=== PATIENT | female | born 1970 | race African-American/Black ===

== ENCOUNTER 2019-05-24 22:57 | Inpatient (IN) | payer OTHER ==
[~2019-05-24] VITALS: Ht 162.6 cm; Wt 123.5 kg
--- NOTE | ~2019-05-24 | EKG ---
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
[~2019-05-24 22:57] MED LIST: Bactroban Oint22 GM T; SEPTDS PO
[2019-05-24 23:55] VITALS: BP 123/59
[2019-05-24 23:55] LABS: BASO % 0.3 % (0.0-1.0); EOS % 0.4 % (1.0-4.0); HEMATOCRIT 45.2 % (37.0-47.0); HEMOGLOBIN 13.7 g/dl (12.0-16.0); LYMPH # 1.3 10*3/uL (1.3-4.4); LYMPH % 16.8 % (27.0-41.0); MEAN CELL VOLUME 99.1 fl (81.0-99.0); MEAN CORPUSCULAR HGB CONC 30.3 g/dl (33.0-37.0); MEAN PLATELET VOLUME 8.6 fl (9.6-12.3); MONO # 0.6 10*3/uL (0.1-1.0); MONO % 7.4 % (3.0-9.0); NEUT # 5.7 10*3/uL (2.3-7.9); NEUT % 74.6 % (47.0-73.0); PLATELET COUNT AUTOMATED 220 10*3/uL (130-400); RED BLOOD COUNT 4.56 10*6/uL (4.10-5.10); WHITE BLOOD COUNT 7.6 10*3/uL (4.8-10.8)
[2019-05-25] MEDS ORDERED: TRULICITY0.75 MG/0. SC (00:01)
[2019-05-25] MEDS ORDERED: XARELTO20 M1 PO (00:03)
[2019-05-25] MEDS ORDERED: LIPITOR80 MG PO (00:03)
[2019-05-25] MEDS ORDERED: STEGLATRO15 MG PO (00:04)
[2019-05-25] MEDS ORDERED: NORVASC10 MG PO (00:04)
[2019-05-25 00:05] LABS: ALBUMIN 3.1 gm/dl (3.1-4.5); CREATININE 1.29 mg/dL (0.55-1.02); POTASSIUM 4.2 mmol/L (3.5-5.1); TOTAL PROTEIN 7.1 gm/dL (6.4-8.2)
[2019-05-25] MEDS ORDERED: DIOVAN160 M2 PO (00:05)
[2019-05-25 00:07] LABS: TROPONIN I 0.047 ng/ml (<0.045)
[2019-05-25 00:08] VITALS: BP 123/58
[2019-05-25 01:52] LABS: ABG BASE EXCESS -0.4 mmol/L (-2.0-2.0); ABG HCO3 28.7 mmol/l (22-26); ABG O2 SATURATION 95.1 % (95-97); ARTERIAL BLOOD GAS PCO2 69.5 mmHg (35-45); ARTERIAL BLOOD GAS PH 7.238 (7.35-7.45); ARTERIAL BLOOD GAS PO2 87.6 mmHg (80-90)
[2019-05-25 02:08] VITALS: BP 146/77
[2019-05-25 02:48] LABS: BILIRUBIN NEGATIVE (NEGATIVE); BLOOD NEGATIVE (NEGATIVE); CLARITY SL CLOUDY (CLEAR); COLOR YELLOW (YELLOW); GLUCOSE 3+ (NEGATIVE); KETONE NEGATIVE (NEGATIVE); LEUKO ESTERASE NEGATIVE (NEGATIVE); NITRITE NEGATIVE (NEGATIVE); SPECIFIC GRAVITY 1.025 (1.005-1.030); UROBILINOGEN 0.2 E.U./dl (0.2-1.0)
[2019-05-25 02:55] LABS: BACTERIA 2+; EPITHELIAL CELLS 16-20; RBC 0-2 rbc/hpf (0-2)
[2019-05-25 04:00] VITALS: BP 147/82
[2019-05-25 04:43] LABS: HEMOGLOBIN 14.1 g/dl (12.0-16.0); MEAN CELL VOLUME 100.4 fl (81.0-99.0); MEAN CORPUSCULAR HGB 30.1 pg (27.0-31.0); MEAN PLATELET VOLUME 8.8 fl (9.6-12.3); NUCLEATED RED BLOOD CELL 0.2 % (0.0-0.0); PLATELET COUNT AUTOMATED 229 10*3/uL (130-400); RED BLOOD COUNT 4.68 10*6/uL (4.10-5.10)
[2019-05-25 05:03] LABS: TOTAL CELLS COUNTED 100 #CELLS
[2019-05-25 05:04] LABS: PLATELET SUFFICIENCY NORMAL (NORMAL)
[2019-05-25 05:14] LABS: ALBUMIN 3.3 gm/dl (3.1-4.5); CREATININE 1.37 mg/dL (0.55-1.02); POTASSIUM 4.4 mmol/L (3.5-5.1); TOTAL PROTEIN 7.9 gm/dL (6.4-8.2)
[2019-05-25 05:22] LABS: THYROID STIM HORMONE (HS) 0.468 uIU/ml (0.358-4.75)
[2019-05-25 08:00] VITALS: BP 114/67
[2019-05-26] MEDS ORDERED: LEVAQUIN500 M2 PO (10:09)
[2019-05-26] MEDS ORDERED: PREDNISONE10 MG PO (10:09)
== END 2019-05-25 09:57 | disposition left against medical advice (07) | DRG 682 ==
LOC: ED 22:57 → ICCU 05-25 01:40 → EDHOLD 05-25 01:40 → ICCU 05-25 01:58
PROVIDERS: Emergency Medicine Emergency Medical Services; Family Medicine; Surgery; ADMIT Internal Medicine
DX: N17.0 Acute kidney failure with tubular necrosis (principal); J96.22 Acute and chronic respiratory failure with hypercapnia; J96.21 Acute and chronic respiratory failure with hypoxia; J44.1 Chronic obstructive pulmonary disease with (acute) exacerbation; E87.2 Acidosis; R74.8 Abnormal levels of other serum enzymes; F19.10 Other psychoactive substance abuse, uncomplicated; F41.9 Anxiety disorder, unspecified; F32.9 Major depressive disorder, single episode, unspecified; E11.65 Type 2 diabetes mellitus with hyperglycemia; Z96.649 Presence of unspecified artificial hip joint; E78.5 Hyperlipidemia, unspecified; E11.42 Type 2 diabetes mellitus with diabetic polyneuropathy; I50.9 Heart failure, unspecified; I11.0 Hypertensive heart disease with heart failure; F17.210 Nicotine dependence, cigarettes, uncomplicated; Z79.899 Other long term (current) drug therapy; Z98.891 History of uterine scar from previous surgery; Z86.718 Personal history of other venous thrombosis and embolism; Z86.711 Personal history of pulmonary embolism; Z82.49 Family history of ischemic heart disease and other diseases of the circulatory system; Z84.89 Family history of other specified conditions; Z71.6 Tobacco abuse counseling

== ENCOUNTER 2019-05-25 10:24 | Inpatient (IN) | payer OTHER ==
[2019-05-25] VITALS (7 sets, daily range): BP systolic 107–144; BP diastolic 51–78
[~2019-05-25] VITALS: Ht 162.5 cm; Wt 126.2 kg
--- NOTE | ~2019-05-25 | EKG ---
[place], [place] ELECTROCARDIOGRAM REPORT NAME: BEBO HARMON UNIT #: [id number] ROOM: 504 DOCTOR: ERMA DRAFT REPORT BIRTHDATE: [birth year] [facility] Test Date: 2019-05-25 Test Time: 10:25:49 Pat Name: BEBO HARMON Department: Room: 504 Gender: F Support Worker: Anaid Gaston : 1970 Requested By: ROHIT PEDRO Order Number: [id number] Reading MD: Marti Hernandez MD Measurements Intervals [place] Rate: 77 P: 64 [place]: 184 QRS: -21 QRSD: 113 T: 149 QT: 426 QTc: 483 Interpretive Statements Sinus rhythm Probable left atrial enlargement Borderline intraventricular conduction delay Abnormal R-wave progression, late transition Abnormal T, consider ischemia, lateral leads No previous ECG available for comparison Electronically Signed On 05-26-2019 12:28:20 PDT by Marti Hernandez MD CM:EKGRPT:ELECTROCARDIOGRAM REPORT 1025 1228 ROHIT STODDARD DRAFT REPORT ROHIT PEDRO DO
--- NOTE | ~2019-05-25 | EKG ---
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
[~2019-05-25 10:24] MED LIST changes: +DIOVAN160 M2 PO; +LIPITOR80 MG PO; +NORVASC10 MG PO; +STEGLATRO15 MG PO; +TRULICITY0.75 MG/0. SC; +XARELTO20 M1 PO
[2019-05-25 10:49] LABS: HEMATOCRIT 43.2 % (37.0-47.0); HEMOGLOBIN 13.1 g/dl (12.0-16.0); MEAN CELL VOLUME 100.9 fl (81.0-99.0); MEAN CORPUSCULAR HGB 30.6 pg (27.0-31.0); MEAN CORPUSCULAR HGB CONC 30.3 g/dl (33.0-37.0); MEAN PLATELET VOLUME 8.8 fl (9.6-12.3); PLATELET COUNT AUTOMATED 209 10*3/uL (130-400); RED BLOOD COUNT 4.28 10*6/uL (4.10-5.10); RED CELL DISTRI WIDTH 15.9 % (0-14.5); WHITE BLOOD COUNT 6.6 10*3/uL (4.8-10.8)
[2019-05-25 11:06] LABS: ALBUMIN 3.1 gm/dl (3.1-4.5); CREATININE 1.35 mg/dL (0.55-1.02); POTASSIUM 4.4 mmol/L (3.5-5.1); TOTAL PROTEIN 7.4 gm/dL (6.4-8.2)
[2019-05-25 11:07] LABS: TROPONIN I 0.03 ng/ml (<0.045)
--- NOTE | 2019-05-25 11:09 | NUR ---
CRITICAL LAB LACTIC ACID 2.5. DR PEDRO NOTIFIED OF THIS.
[2019-05-25 11:10] LABS: TOTAL CELLS COUNTED 100 #CELLS
[2019-05-25 11:12] LABS: PLATELET SUFFICIENCY NORMAL (NORMAL); POLYCHROMASIA SLIGHT
--- NOTE | 2019-05-25 11:15 | NUR ---
PT POSITIONED FOR COMFORT WITH FLUIDS AND BOX LUNCH PROVIDED,PT SITTING TO SIDE OF THE BED WATCING T.V. W/O ADDITIONAL COMPLAINTS VOICED.VSS.
--- NOTE | 2019-05-25 12:50 | NUR ---
ABSCESS?(PER PT @ [facility])TO RAC WITH FULL THICKNESS ULCERATION NOTED @ THIS TIME PRIOR TO ADMISSION.
--- NOTE | 2019-05-25 13:15 | NUR ---
DELAY IN TAKING PT TO FLOOR D/T PHYSICIAN IN TO SPEAK WITH PT AT THIS TIME.
--- NOTE | 2019-05-25 13:30 | NUR ---
LAB & EKG IN TO OBTAIN 2ND EKG & LABS.
--- NOTE | 2019-05-25 13:45 | NUR ---
A 48, admitted to , under the services of ALLAN Bearden DO with a diagnosis of ACUTE RESPIRATORY FAILURE WITH HYPOXIA, ACUTE HEART FAILURE. Chief complaint is SOB AFTER LEAVING ICC[facility] AMA AND GOING OUTSIDE TO SMOKE. Patient arrived via stretcher from ER. Monitor applied. Initial assessment completed. Vital signs taken and recorded. See assessment for past medical history, medications and allergies. Patient and/or family oriented to unit. [facility] visitation policy reviewed. CAROLINA OLIVAREZ
--- NOTE | 2019-05-25 14:17 | NUR ---
Dr. Albrecth notified of critical lactic acid of 2.3 and troponin of 0.22. Notified that med rec was updated as well.
--- NOTE | 2019-05-25 15:46 | NUR ---
Pt given sputum cup and instructed on use. Applied dressing to RAN wound per orders.
--- NOTE | 2019-05-25 16:25 | NUR ---
Notified by lab that pt refused blood draw for ordered labs.
--- NOTE | 2019-05-25 17:10 | NUR ---
Notified by EKG that pt refused her last EKG.
--- NOTE | 2019-05-25 19:00 | NUR ---
Checked in on patient and asked her if she wanted a breathing tx. She stated that she didnt and all she wanted to do was sleep. Informed her to let the nurse know if she decided she needed one throughout the night.
--- NOTE | 2019-05-25 19:00 | NUR ---
BEDSIDE REPORT RECEIVED. PT ALERT, VOICES NO COMPLAINTS/NEEDS AT THIS TIME. RESTING IN BED WITH EYES CLOSED. CALL LIGHT IN REACH.
--- NOTE | 2019-05-25 21:58 | NUR ---
PT IS REFUSING ALL MEDICATIONS AT THIS TIME. PT STATES "I AM TRYING TO SLEEP. I DONT WANT ANY MEDS." WILL NOTIFY PHYSICIAN. PT VOICES NO NEEDS AT THIS TIME.
--- NOTE | 2019-05-25 23:12 | NUR ---
24 HR chart check completed.
[2019-05-26] VITALS: BP 141/84
[2019-05-26 06:39] LABS: BASO % 0.1 % (0.0-1.0); HEMATOCRIT 42.7 % (37.0-47.0); HEMOGLOBIN 13.4 g/dl (12.0-16.0); LYMPH # 1.4 10*3/uL (1.3-4.4); LYMPH % 10.3 % (27.0-41.0); MEAN CORPUSCULAR HGB 30.5 pg (27.0-31.0); MEAN CORPUSCULAR HGB CONC 31.4 g/dl (33.0-37.0); MEAN PLATELET VOLUME 9.2 fl (9.6-12.3); MONO # 1.1 10*3/uL (0.1-1.0); MONO % 7.9 % (3.0-9.0); NEUT # 10.9 10*3/uL (2.3-7.9); NEUT % 81.3 % (47.0-73.0); NUCLEATED RED BLOOD CELL 0.2 % (0.0-0.0); PLATELET COUNT AUTOMATED 246 10*3/uL (130-400); RED CELL DISTRI WIDTH 15.7 % (0-14.5); WHITE BLOOD COUNT 13.5 10*3/uL (4.8-10.8)
--- NOTE | 2019-05-26 06:48 | NUR ---
BEBO HARMON [id number] Please refer to the physician's history and physical for past medical history, comorbid conditions, and allergies. Diagnosis: AC RESPIRATORY FAILURE W/HYPOXIA, AC HEART FAILURE Kojo Score: 21,LOW OR NO RISK WOUND DESCRIPTIONS: Wound Number: 1 Location of the wound: right ac Thickness: Full Size: 0.9cm x 1.2cm x <0.1cm Tunneling: none Undermining: none Sinus Tract: none Presence of Exudate: Serosanguineous Amount: Light Color: Yellow, red Odor: None Periwound Skin Appearance: Erythema, firmness Wound edges: approximated Pain (associated with wound): none at time of assessment How does patient state this happened? pt stated she last used this site on Surface the patient is resting on: Position Pro SKIN PREVENTION RECOMMENDATION: 1. Pressure redistribution support surface as appropriate 2. Elevate heels 3. Remove boots/TEDS every shift and reapply 4. Head of bed 30 degrees as tolerated 5. Assess nutrition and hydration 6. Manage moisture 7. Avoid the use of containment devices while in bed 8. Use absorptive products on surfaces limit layers of linens on bed 9. Turn and reposition every 1-2 hours in bed and every 1 hour in chair as tolerated 10. Weight shifts every 15 minutes while up in chair 11. Offloading with pillows or device to keep heels elevated off bed 12. Monitor skin at least every shift 13. Inspect under medical devices twice a day WOUND TREATMENT RECOMMENDATIONS: Warm compresses QID to right ac. Full thickness guidelines: Cleanse right ac with nss and apply sureprep around the wound therahoney to wound bed and cover with large bandaid daily and prn for soiling. Consult Emily OKEEFE-BC for possible debridement of right ac if patient is in agreement.
[2019-05-26 06:58] LABS: ALBUMIN 3.2 gm/dl (3.1-4.5); ALKALINE PHOSPHATASE 76 U/L (45-117); BUN 19 mg/dl (7-24); CHLORIDE 106 mmol/L (98-107); CREATININE 1.06 mg/dL (0.55-1.02); PHOSPHOROUS 2.6 mg/dL (2.5-4.9); POTASSIUM 4.4 mmol/L (3.5-5.1); SGOT/AST 26 IU/L (3-35); SGPT/ALT 33 U/L (12-78); SODIUM 138 mmol/L (136-145); TOTAL PROTEIN 7.5 gm/dL (6.4-8.2)
[2019-05-26 07:06] LABS: THYROID STIM HORMONE (HS) 0.698 uIU/ml (0.358-4.75)
--- NOTE | 2019-05-26 08:35 | NUR ---
PT SLEEPING, NO DISTRESS NOTED.
--- NOTE | 2019-05-26 08:47 | NUR ---
Dr. John notified of wound care recommendations.
--- NOTE | 2019-05-26 09:26 | NUR ---
PT COMPLAIN OF STOMACH CRAMPS AND MUSCLE ACHES, PRN MEDICATIONS GIVEN. SEE EMAR. WILL MONITOR FOR EFFECTIVENESS. PT PLEASANT AND COORPORATIVE
[2019-05-26] MEDS ORDERED: LEVAQUIN500 M2 PO (10:09)
[2019-05-26] MEDS ORDERED: PREDNISONE10 MG PO (10:09)
--- NOTE | 2019-05-26 10:18 | NUR ---
PT REFUSE WARM COMPRESS TO RIGHT AC AREA
--- NOTE | 2019-05-26 11:43 | NUR ---
Hunting Sales Associate in to talk to patient. Patient states lives at HOUSING FACILITY with A LOT OF PEOPLE. There are FEW steps in the home. Physician: NON STAFF PHYSICIAN [facility]acy[facility] Home health services: NONE Patient's level of ADLs: INDEPENDENT Patient has working utilities: YES DME: STATES A WALKER SHE USES SOMETIMES Follow-up physician's appointment after d/c: STATES SHE WILL FOLLOW UP AFTER DISCHARGE Does patient want to access PORTAL?: NO Discharge plan PT STATES SHE LIVES IN HOUSING, BUT HAS HER OWN ROON THERE. 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 STATES SHE HAD SURGERY ON HER ANKLE AND STILL USES A WALKER SOMETIMES ALTHOUGH HAS BEEN WALKING WITHOUT IT HERE. WILL CONTINUE TO FOLLOW.. TYRELL GILLILAND
--- NOTE | 2019-05-26 12:08 | NUR ---
Discharge instructions reviewed with patient. Patient receptive and verbalizes understanding. Follow-up care understood. Written instructions given to patient. iv removed left ac, dressing applied. pt refused to have bandaid on left ac area removed for discharge photo. pt taken to pharmacy via wheelchair to order picker/assembler home mediactions and wanted to wait in lobby for ride home. no questions on discharge at this time NIMA JUDD
--- NOTE | 2019-05-26 12:29 | NUR ---
Nutritional Support Services Note: Pt was triggered dt wound. She was signing DC papers when I went to provide nutrition intervention. No nutrition intervention needed at this time. Brennan Wolfe Tree Faller Dietitian
== END 2019-05-26 12:08 | disposition home or self-care (01) | DRG 191 ==
LOC: ED 10:24 → EDHOLD 12:47 → 5E 12:47
PROVIDERS: Emergency Medicine; Student in an Organized Health Care Education/Training Program; ADMIT Internal Medicine
DX: J44.1 Chronic obstructive pulmonary disease with (acute) exacerbation (principal); E44.0 Moderate protein-calorie malnutrition; E87.1 Hypo-osmolality and hyponatremia; E87.2 Acidosis; Z68.42 Body mass index [BMI] 45.0-49.9, adult; S41.101S Unspecified open wound of right upper arm, sequela; E11.65 Type 2 diabetes mellitus with hyperglycemia; E66.01 Morbid (severe) obesity due to excess calories; X58.XXXS Exposure to other specified factors, sequela; F19.10 Other psychoactive substance abuse, uncomplicated; I11.9 Hypertensive heart disease without heart failure; F17.210 Nicotine dependence, cigarettes, uncomplicated; Z96.649 Presence of unspecified artificial hip joint; E78.5 Hyperlipidemia, unspecified; E53.8 Deficiency of other specified B group vitamins; F41.9 Anxiety disorder, unspecified; F32.9 Major depressive disorder, single episode, unspecified; E11.41 Type 2 diabetes mellitus with diabetic mononeuropathy; Z86.718 Personal history of other venous thrombosis and embolism; Z86.711 Personal history of pulmonary embolism; Z98.891 History of uterine scar from previous surgery; Z83.3 Family history of diabetes mellitus; Z82.49 Family history of ischemic heart disease and other diseases of the circulatory system; Z79.899 Other long term (current) drug therapy